=== PATIENT | female | born 1950 | race Caucasian/White ===

== ENCOUNTER 2016-10-07 06:42 | Day surgery (SDC) | payer BC ==
[~2016-10-07 06:42] MED LIST: CLINDAMYCIN PHOSPHATE 600 MG in DEXTROSE 5 % IN WATER 100 ML IV PRN; RINGERS SOLUTION,LACTATED 1,000 ML IV PRN
[2016-10-07] MEDS ORDERED: LIDOCAINE HCL 50 ML VIAL IJ ONE (07:55)
[2016-10-07] MEDS ORDERED: BUPIVACAINE HCL 50 ML VIAL IJ ONE (07:55)
[2016-10-07] MEDS ORDERED: DEXAMETHASONE SOD PHOSPHATE 4 MG/ML VIAL IJ ONE (08:24)
[2016-10-07 10:01] VITALS: BP 140/76
== END 2016-10-07 06:43 | disposition home or self-care (01) ==
LOC: AMB 06:42
PROVIDERS: ATTEND Student in an Organized Health Care Education/Training Program
PROC: 0YB Anatomical Regions, Lower Extremities, Excision (ICD-10-PCS; 2016-10-07)
PROC: 0JQP0ZZ Repair Left Lower Leg Subcutaneous Tissue and Fascia, Open Approach (ICD-10-PCS; principal; 2016-10-07 08:00)
DX: D17.24 Benign lipomatous neoplasm of skin and subcutaneous tissue of left leg (principal); I10 Essential (primary) hypertension; E03.9 Hypothyroidism, unspecified; Z68.41 Body mass index [BMI] 40.0-44.9, adult

== ENCOUNTER 2016-11-30 12:04 | Emergency (ER) | payer BC ==
--- NOTE | 2016-11-30 12:11 | ERNOTE ---
Integumentary HPI - Narrative Date of Service: 11/30/16 - General Presenting Symptoms: other - post surgical site infection Time Seen by Provider: 11/30/16 12:08 Source: patient Exam Limitations: no limitations - Immun/Allergies/Home Medications Allergies/Adverse Reactions: Allergies Allergy/AdvReac Type Severity Reaction Status Date / Time Penicillins AdvReac Mild RASH Verified 11/30/16 12:19 Home Medications: HOME MEDICATIONS Carvedilol [Coreg] 1.5 tab PO DAILY 02/24/15 [Last Taken Unknown] Furosemide [Lasix] 20 mg PO DAILY 02/24/15 [Last Taken Unknown] Losartan Potassium [Cozaar] 50 mg PO DAILY 02/24/15 [Last Taken Unknown] Acetaminophen [Tylenol] 500 - 1,000 mg PO Q4H PRN 09/27/16 [Last Taken Unknown] Clindamycin HCl [Cleocin HCl] 300 mg PO BID #20 capsule 11/30/16 [Last Taken Unknown] - History of Present Illness Narrative: 66-year-old female presenting with a left outer ankle infection. States that she had lipoma surgery over a week ago. States she was on antibiotics finished on Friday. She has noticed bleeding and different color fluids coming out from a small hole in the incision site. States that it has gotten redder. And is more painful. Date (Duration): 11/30/16 Location: Reports: feet - left ankle Quality: Reports: painful Severity: mild Exposure: Reports: other - surgical site incision Modifying Factors - (Improves): Reports: nothing Modifying Factors - (Worsens): Reports: nothing Associated Symptoms: Reports: edema - to site. Denies: blisters, petechiae Prior Treatment: Reports: treated by physician - dr menjivar Review of Systems - Review of Systems Constitutional: Present: no symptoms reported. Absent: fever, chills, diaphoresis, fatigue EYE: Present: no symptoms reported ENT: Present: no symptoms reported Respiratory: Present: no symptoms reported Cardiology: Present: no symptoms reported Gastrointestinal/Abdominal: Present: no symptoms reported Genitourinary: Present: no symptoms reported Musculoskeletal: Present: no symptoms reported Skin: Present: See HPI Neurological: Present: no symptoms reported Endocrine: Present: no symptoms reported Hematologic/Lymphatic: Present: no symptoms reported Psych: Present: no symptoms reported - Patient's Past Medical History Patient History - Medical: No pertinent hx, Other Patient History - Cardiac/Respiratory: Hypertension, Other Patient History - Cancer: No Hx of Cancer Patient History - Surgical Procedures: Appendectomy, Cholecystectomy, Colonoscopy, Hysterectomy Patient History - Other: None - Family History Mother Family History - Medical: , Other Family History - Cardiac/Respiratory: Hypertension - Social History Living Situations: spouse Abuse History: No History of abuse Psych History: No pertinent hx Alcohol Use: occasionally Drug Use: none Physical Exam - Physical Exam General Appearance: Present: wd/wn, alert, no apparent distress Ears, Nose, Throat: Present: normal ENT inspection Neck: Present: normal inspection Respiratory: Present: no respiratory distress, normal breath sounds Cardiovascular/Chest: Present: regular rate, rhythm Gastrointestinal/Abdominal: Present: normal bowel sounds Extremity Exam: Present: normal except -, other - outer ankle surgical incision is reddened, warm and some edema present, along with a small opening along the incision line. Bandage has purulent and serosanguineous drainage. Small amount of serosanguineous and purulent drainage expressed and cultured. Skin Exam: Present: normal color Lymphatic Exam: Present: no adenopathy ED Progress - Vital Signs Patient's Vital Signs:: I have reviewed the patient's vital signs. - Progress/Reassessment Chief Complaint: Cellulitis Progress:: Improved Progress Note-Subjective: 11/30/16 12:[address] Menjivar regarding postop surgical complication she advised to start patient on clindamycin 300 mg by mouth twice a day 10 days. Patient does have a follow-up appointment on Friday. Dr. Menjivar is aware of ER visit and agrees with treatment plan. Plan - Plan Plan: Patient educated on wound care. Culture sent to lab. Dr. Menjivar aware Departure Clinical Impression: Cellulitis Qualifiers: Site of cellulitis: extremity Site of cellulitis of extremity: lower extremity Laterality: left Qualified Code(s): L03.116 - Cellulitis of left lower limb - Departure Disposition: Home Follow Up Needed Condition: Stable Instructions: Wound Infection, [id number] Additional Instructions: Keep follow up apt on Friday with doctor Menjivar. Rest and keep ankle elevated. Return to emergency room if condition worsens. Start antibiotics today. Referrals: Mireya Taveras MD [Primary Care Provider] - Prescriptions: Clindamycin HCl [Cleocin HCl] 300 mg PO BID #20 capsule
[2016-11-30 12:19] VITALS: BP 172/94
--- OUTSIDE RECORDS SUMMARY | 2016-11-30 12:27 | XMS REPORT | Continuity of Care Document ---
:1950 Author Organization [facility] ([facility]) Address [address] [place] [address] Phone [phone] Care Team Providers Name Role Phone Unavailable Primary Care Provider Unavailable Source Comments This disclosure is being made pursuant to the Care Everywhere program, applicable federal and state laws, and may not contain all informaitonavailable regarding this patient.[facility] ([facility]) Active Allergies and Adverse Reactions Not on File Current Medications Not on file Active Problems Not on file Social History Tobacco Use Types Packs/Day Years Used Date Never Assessed Plan of Care Health Maintenance Due Date Last Done Comments HCV Screening 1950 Hepatitis B Vaccine (1 of 3 - Primary Series) 1950 Tdap Vaccine 1963 Lipid Disorder Screening 1970 Td Vaccine 1970 Cervical Cancer Screening 1982 Mammogram 1992 Colonoscopy 2002 Zoster Vaccine 2012 Influenza Vaccine: Seasonal (#1) 04/22/2016 Results from Last 3 Months Not on file
== END 2016-11-30 13:02 | disposition home or self-care (01) ==
LOC: ER 12:04
DX: L03.116 Cellulitis of left lower limb (principal); I10 Essential (primary) hypertension

== ENCOUNTER 2017-05-21 03:51 | Emergency (ER) | payer BC ==
--- NOTE | 2017-05-21 04:23 | ERNOTE ---
Time Seen by Provider: 05/21/17 04:05 Stated Complaint: cough Presenting Symptoms:: cough Source: patient Exam Limitations: no limitations Immunizations: IMMUNIZATION HX Immunizations Up to Date Yes History of Influenza Vaccine Yes Hx Pneumococcal Vaccination Yes Allergies/Adverse Reactions: Allergies hydrocodone Allergy (Verified 05/21/17 03:59) Penicillins Adverse Reaction (Mild, Verified 05/21/17 03:59) RASH Home Medications: HOME MEDICATIONS Carvedilol [Coreg] 1.5 tab PO BID 02/24/15 [Last Taken Unknown] Furosemide [Lasix] 20 mg PO DAILY 02/24/15 [Last Taken Unknown] Losartan Potassium [Cozaar] 50 mg PO DAILY 02/24/15 [Last Taken Unknown] Acetaminophen [Tylenol] 500 - 1,000 mg PO Q4H PRN 09/27/16 [Last Taken Unknown] - History of Present Ilness Narrative: Pt noticed she began to have some nasal drainage last evening and then began to cough. She now feels like she cant take a deep breath. Timing: getting worse Severity: mild Frequency/Possible Cause: Reports: no prior episodes Modifying Factors - Improves: Reports: rest Modifying Factors - Worsens: Reports: coughing, deep breath Associated Symptoms: Reports: nasal congestion, nasal drainage Prior Treatment: Reports: recently seen, treated by physician - for ear infection Review of Systems - Review of Systems Constitutional: Present: recent illness. Absent: fever, chills EYE: Present: other - left upper eyelid redness and swelling ENT: Present: nose congestion, nasal drainage Respiratory: Present: See HPI Cardiology: Absent: chest pain, edema Gastrointestinal/Abdominal: Absent: nausea, vomiting Genitourinary: Present: no symptoms reported Musculoskeletal: Present: no symptoms reported Skin: Present: no symptoms reported Neurological: Present: no symptoms reported Endocrine: Present: no symptoms reported Hematologic/Lymphatic: Present: no symptoms reported Psych: Present: no symptoms reported - Patient's Past Medical History Patient History - Medical: No pertinent hx, Other Patient History - Cardiac/Respiratory: CHF, Hypertension Patient History - Cancer: No Hx of Cancer Patient History - Surgical Procedures: Appendectomy, Cholecystectomy, Colonoscopy, Hysterectomy Patient History - Other: None - Family History Mother Family History - Medical: , Other Family History - Cardiac/Respiratory: Hypertension - Social History Living Situations: home Abuse History: No History of abuse Psych History: No pertinent hx Smoking Status: Never smoker Alcohol Use: occasionally Drug Use: none - Immunizations Immunizations Up to Date: Yes Hx Pneumococcal Vaccination: Yes History of Influenza Vaccine: Yes Physical Exam - Physical Exam General Appearance: Present: wd/wn, alert, no apparent distress Head Exam: Present: normal inspection, no evidence of injury Eye Exam: Normal inspection: bilateral, PERRL: bilateral Neck: Present: normal inspection, nontender Respiratory: Present: no respiratory distress, no accessory muscle use, decreased breath sounds - somewhat rough Cardiovascular/Chest: Present: regular rate, rhythm, no murmur Back Exam: Present: normal inspection, normal range of motion Extremity Exam: Present: normal inspection, normal range of motion, no edema Neurological Exam: Present: alert, oriented, normal mood/affect Skin Exam: Present: normal color, warm/dry Lymphatic Exam: Present: no adenopathy ED Progress - Results and Orders Patient's Lab Results:: I have reviewed the patient's lab results. Results and Orders: Laboratory Tests 05/21/17 05/21/17 04:09 04:26 WBC 8.6 Hgb 12.7 Hct 39.9 Plt Count 281 Sodium 142 Potassium 3.9 Chloride 104 BUN 9 Creatinine 1.03 Random Glucose 122 H Calcium 9.0 AST 16 ALT 23 B-Natriuretic Peptide 207 H - Vital Signs Patient's Vital Signs:: I have reviewed the patient's vital signs. Vital Signs: Vital Signs 05/21/17 03:55 Temperature 36.0 C L Pulse Rate 98 Respiratory 18 Rate Blood Pressure 181/97 O2 Sat by Pulse 97 Oximetry - X-Ray X-Ray #1 X-Ray: chest Interpretation: Reviewed by me X-ray Comments: No acute cardiopulmonary processes - Progress/Reassessment Chief Complaint: Cough Departure - Departure Clinical Impression: Bronchitis Disposition: Home self-care Condition: Good Instructions: Acute Bronchitis, [id number] Additional Instructions: You may use mucinex 600 mg, one twice a day. Referrals: Mireya Taveras MD [Primary Care Provider] -
[2017-05-21 04:26] LABS: Hematocrit 39.9 % (37.0-47.0); Hemoglobin 12.7 gm/dL (12.5-16.0); Mean Cell Volume 85.4 fl (78-100); Mean Corpuscular Hemoglobin 27.2 pg (27-31); Mean Corpuscular Hgb Conc 31.8 g/dl (32-36); Neutrophil # 5.8 K/mm3 (1.3-6.0); Neutrophil % 67.4 % (42-75.0); Platelet Count 281 K/mm3 (150-450); Red Blood Count 4.67 M/mm3 (4.2-5.4); Red Cell Distribution Width 13.3 % (11.5-14.0); White Blood Count 8.6 K/mm3 (4.0-10.5)
[2017-05-21 04:55] LABS: Albumin * 3.5 gm/dl (3.4-5.0); Anion Gap 14.7 mmol/L (6.8-13.8); BUN/Creatinine Ratio 8.7 (9.0-21.6); Bilirubin, Total 0.3 mg/dL (0.0-1.1); Carbon Dioxide 27.2 mmol/L (24-32.6); Potassium 3.9 mmol/L (3.4-4.6); Total Protein 7.7 gm/dL (6.2-8.2)
[2017-05-21 05:06] LABS: Ca. Corrected For Albumin 9.1 mg/dL (8.4-10.2)
[2017-05-21 05:47] VITALS: BP 153/88
== END 2017-05-21 05:54 | disposition home or self-care (01) ==
LOC: ER 03:51
DX: J40 Bronchitis, not specified as acute or chronic (principal)

== ENCOUNTER 2017-10-06 10:49 | Emergency (ER) | payer BC ==
[2017-10-06 11:16] LABS: Hematocrit 40.2 % (37.0-47.0); Mean Cell Volume 85.4 fl (78-100); Mean Corpuscular Hemoglobin 27.6 pg (27-31); Mean Corpuscular Hgb Conc 32.3 g/dl (32-36); Neutrophil # 4.1 K/mm3 (1.3-6.0); Neutrophil % 68.4 % (42-75.0); Platelet Count 263 K/mm3 (150-450); Red Blood Count 4.71 M/mm3 (4.2-5.4); Red Cell Distribution Width 12.8 % (11.5-14.0)
--- NOTE | 2017-10-06 11:19 | ERNOTE ---
Abdominal HPI - Narrative Date of Service: 10/06/17 - General Chief Complaint: Abdominal Pain Time Seen by Provider: 10/06/17 10:52 Source: patient Exam Limitations: no limitations - Immun/Allergies/Home Medications Immunizatons: IMMUNIZATION HX Immunizations Up to Date Yes History of Influenza Vaccine Yes Hx Pneumococcal Vaccination Yes Allergies/Adverse Reactions: Allergies hydrocodone Allergy (Verified 10/06/17 10:57) Penicillins Adverse Reaction (Mild, Verified 10/06/17 10:57) RASH Home Medications: HOME MEDICATIONS Carvedilol [Coreg] 1.5 tab PO BID 02/24/15 [Last Taken Unknown] Furosemide [Lasix] 20 mg PO DAILY 02/24/15 [Last Taken Unknown] Losartan Potassium [Cozaar] 50 mg PO DAILY 02/24/15 [Last Taken Unknown] Acetaminophen [Tylenol] 500 - 1,000 mg PO Q4H PRN 09/27/16 [Last Taken Unknown] Dicyclomine HCl [Bentyl] 10 mg PO TID #30 capsule 10/06/17 [Last Taken Unknown] - History of Present Illness Narrative: Pt. comes in with c/o RLQ pain for a month and a half. Pt. states that she has been seen three times for this and has been diagnosed with a UTI and that resolved then she was diagnosed with diverticulitis and was started on Cipro and flagyl and states that the treatment is making her feel worse than her symptoms. Timing: constant Quality: moderate Activities at Onset: none Modifying Factors - (Improves): Present: other - denies Modifying Factors - (Worsens): Present: movement Associated Symptoms: Present: nausea. Absent: diarrhea-gross blood, diarrhea- mucous, fatigue, shortness of breath Prior Abdominal Problems: Present: none Prior Treatment: Present: recently seen, treated by physician, currently on antibiotics - Patient's Past Medical History Patient History - Medical: No pertinent hx, Hypothyroidism, Other Patient History - Cardiac/Respiratory: CHF, Hypertension Patient History - Cancer: No Hx of Cancer Patient History - Surgical Procedures: Appendectomy, Cholecystectomy, Colonoscopy, Hysterectomy Patient History - Other: None - Family History Mother Family History - Medical: , Other Family History - Cardiac/Respiratory: Hypertension - Social History Living Situations: home Abuse History: No History of abuse Psych History: No pertinent hx Alcohol Use: none Drug Use: none - Immunizations Immunizations Up to Date: Yes Hx Pneumococcal Vaccination: Yes History of Influenza Vaccine: Yes ED Progress - Date and Time Seen: Date and Time: 10/06/17 12:[address] Darnell and we feel that this is likely not colitis or diverticulitis as pt. has no increase in WBC. Consulted Dr Fitzpatrick and he agrees that this is not an acute problem and that we should treat her symptoms and stop the ABX and have her follow up with him in clinic. - Results and Orders Patient's Lab Results:: I have reviewed the patient's lab results. Results and Orders: Abnormal Lab Results 10/06/17 10/06/17 10/06/17 Range/Units 11:10 11:10 11:31 Lymphocytes # 1.3 L (1.5-3.5) k/mm3 Est GFR (Non-Af Amer) 50 L (60-130) mL/min BUN/Creatinine Ratio 5.2 L (9.0-21.6) Random Glucose 123 H (70-110) mg/dL Ur Leukocyte Esterase 75 H (NEGATIVE) /ul - Vital Signs Patient's Vital Signs:: I have reviewed the patient's vital signs. Vital Signs: Vital Signs 10/06/17 10:50 Temperature 36.9 C Pulse Rate 85 Respiratory 12 Rate Blood Pressure 163/92 O2 Sat by Pulse 98 Oximetry - X-Ray X-Ray #1 X-Ray: abdomen Interpretation: Reviewed by me X-ray Comments: R sided air fluid levels most likley related to pt.liquid diet. - Progress/Reassessment Chief Complaint: Abdominal Pain Progress:: Unchanged Departure Clinical Impression: Abdominal pain Qualifiers: Abdominal location: right lower quadrant Qualified Code(s): R10.31 - Right lower quadrant pain - Departure Disposition: Home self-care Condition: Good Instructions: Abdominal Pain, Adult, [id number] Additional Instructions: Please stop antibiotics and may start soft diet. Please follow up with Dr Fitzpatrick by calling his office for appointment. Please start probiotic daily. Referrals: iMreya Taveras MD [Primary Care Provider] - Prescriptions: Dicyclomine HCl [Bentyl] 10 mg PO TID #30 capsule
[2017-10-06 11:29] LABS: Albumin * 3.6 gm/dl (3.4-5.0); BUN/Creatinine Ratio 5.2 (9.0-21.6); Bilirubin, Total 0.4 mg/dL (0.0-1.1); Ca. Corrected For Albumin 8.8 mg/dL (8.4-10.2); Calcium * 8.8 mg/dL (7.9-10.9); Carbon Dioxide 29.8 mmol/L (24-32.6); Potassium 3.8 mmol/L (3.4-4.6); Total Protein 7.7 gm/dL (6.2-8.2)
[2017-10-06] MEDS ORDERED: ACETAMINOPHEN 500 MG TABLET PO ONE (11:35)
[2017-10-06 11:44] LABS: Urine Bilirubin Negative (NEGATIVE); Urine Blood Negative /ul (NEGATIVE); Urine Ketone Negative (NEGATIVE); Urine Nitrite Negative (NEGATIVE); Urine Protein Negative (NEGATIVE); Urine Urobilinogen Normal (NORMAL)
[2017-10-06 11:48] LABS: Hemoglobin A1C 5.9 % (4.00-6.0)
[2017-10-06 11:51] LABS: Urine Appearance Clear; Urine Bacteria None Seen; Urine Color Yellow; Urine RBC None Seen /hpf (0-5); Urine WBC None Seen /hpf (0-5)
[2017-10-06 12:22] VITALS: BP 146/77
== END 2017-10-06 12:20 | disposition home or self-care (01) ==
LOC: ER 10:49
DX: I50.9 Heart failure, unspecified; I10 Essential (primary) hypertension; R10.31 Right lower quadrant pain; E03.9 Hypothyroidism, unspecified